=== PATIENT | female | born 1990 | race Caucasian/White ===

== ENCOUNTER 2023-11-24 08:02 | Emergency (ER) | payer MEDICAID ==
[~2023-11-24] VITALS: Ht 152.4 cm; Wt 66.0 kg
[2023-11-24 08:09] VITALS: O2SAT 99
[2023-11-24] MEDS ORDERED: KETOROLAC 60MG/2ML VIAL IM ONE (08:45)
[2023-11-24] MEDS ORDERED: DEXAMETHASONE 0.5MG/5ML ORAL SYR PO ONE (08:45)
[2023-11-24] MEDS: DEXAMETHASONE 4MG/ML 1ML VIAL PO NR (09:07)
[2023-11-24] MEDS: KETOROLAC 15MG/ML VIAL IM NR (09:11)
[2023-11-24] MEDS: PENICILLIN G BENZATHINE 1,200,000 UNITS/2ML SYR IM ONE (10:25)
[2023-11-24 11:11] VITALS: BP 106/57; PULSE 89; RESP 18; TEMP 98.3
== END 2023-11-24 11:14 | disposition home or self-care (01) ==
LOC: ER 08:48
DX: J02.0 Streptococcal pharyngitis (principal); Z88.0 Allergy status to penicillin
CPT/HCPCS: 81025; 87430; 96372; 99284; J1100; J1885; J0561; Z7610; J8540